=== PATIENT | female | born 1975 | race Caucasian/White ===

== ENCOUNTER 2016-05-27 06:07 | Day surgery (SDC) | payer BC ==
--- NOTE | 2016-05-26 19:41 | GHP ---
[f rep st] PREOP HISTORY AND PHYSICAL DATE OF ADMISSION: 05/27/2016 DATE OF SURGERY: 05/27/2016 SERVICE: Obstetric service. HISTORY OF PRESENT ISSUE: The patient is a 40-year-old G3, P1, A1, who is approximately 9 weeks from her last menstrual period on 03/25/2016, who has a threatened AB. The patient has had bleeding for the past 2 days with cramping. The bleeding and cramps have not been excessive, however, persistent, and the patient has had a concerning feel about the . The patient has been minimally affected with nausea. The patient had a positive test in early April. Ultrasound performed on 05/26 shows an intrauterine gestational sac with multiple cystic-looking areas. No obvious distinct yolk sac or fetus identified. Possible pole measuring 8 weeks 2 days, however , malformed if it was development. No heart rate visualized. Probable corpus luteum cyst on the right ovary noted. Left ovary appears normal. The results were reviewed with the patient, with the concern that there does not appear to be a normally developing . The patient desires to proceed with definitive management with a D and C. With this cystic component and the gestational sac, the patient was informed of potential molar change. The patient is reassured that the pathology information from the D and C will guide us as to future followup. The patient desires the procedure as soon as possible, and this has been arranged on 05/27/2016. The patient has a negative blood type of A negative and is aware she needs RhoGAM. This will be administered when she is in the hospital after the D and C. The patient will be advised as to the risks for surgery, and consent form will be signed at the time of preop at the bedside. PAST OBSTETRIC HISTORY: One elective termination in May 2011 with no complications. A term primary section for breech presentation performed on December 04, 2014, by Dr. Lew. Patient had a viable female at 8 pounds 2 ounces, and the procedure was uncomplicated. 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 Last Pap smear in December 2014. PAST MEDICAL HISTORY: History of depression. PAST SURGICAL HISTORY: Thyroglossal duct removed at age 17 and a LEEP procedure in 2012. section, November 2014. ALLERGIES: The patient has no known drug allergies. CURRENT MEDICATIONS: Only vitamins. LABS: Patient with a history of a negative blood type. PHYSICAL EXAM: GENERAL: The patient is a well-developed, well-nourished white female with depressed persona with the knowledge of the abnormal . Appropriate behavior. VITAL SIGNS: Clinically afebrile. Blood pressure 82/ 58. LUNGS: Clear to auscultation bilaterally. CARDIOVASCULAR: Regular rate and rhythm. ABDOMEN: Soft, nontender. Ultrasound as described above. Bimanual exam not performed. EXTREMITIES: Nontender and no edema. ASSESSMENT: Threatened with bleeding and cramping x2 days. Abnormal intrauterine gestational sac with cystic components. PLAN: We will proceed with a D and C on the morning of 05/27/2016. The patient will have a CBC, blood type, Rh, and antibody screen performed and then will receive RhoGAM if antibody screen is negative. HCG level also will be drawn in case this reveals molar tissue to facilitate watching hCG levels after the surgery. Patient knows to be n.p.o. after midnight. She will receive IV antibiotics and have SCDs on during the procedure. /[id number]/MODL MTDD
[2016-05-27] MEDS ORDERED: DOXYCYCLINE INJ 100 MG in NS 250 ML IV ONE (07:00)
[2016-05-27] MEDS ORDERED: LR 1,000 ML IV ONE (07:00)
[2016-05-27] MEDS ORDERED: MIDAZOLAM 2 MG/2 ML VIAL ONE (07:06)
[2016-05-27] MEDS ORDERED: AMMONIA AROMATIC 1 EACH AMP IH ONE (07:07)
[2016-05-27] MEDS ORDERED: MISOPROSTOL 200 MCG TAB ONE (07:07)
[2016-05-27] MEDS ORDERED: OXYTOCIN 10 UNIT/ML VIAL ONE (07:08)
[2016-05-27 07:24] LABS: % IMMATURE GRANULYOCYTES 0.4 % (0.0-1.1); ABSOLUTE IMMATURE GRANULOCYTES 0.02 10^3/uL (0.00-0.10); ADD DIFF? NO; ADD MORPH? NO; ADD SCAN? NO; ATYPICAL LYMPHOCYTE FLAG 0 (0-99); FRAGMENT RBC FLAG 0 (0-99); HEMATOCRIT 39.4 % (38.0-47.0); HEMOGLOBIN 13.9 g/dL (12.6-16.3); LEFT SHIFT FLG 0 (0-99); LIPEMIA HEMOLYSIS FLAG 90 (0-99); MEAN CELL HEMOGLOBIN 32.2 pg (27.9-34.1); MEAN CELL HEMOGLOBIN CONCENTR. 35.3 g/dL (32.4-36.7); MEAN CELL VOLUME 91.2 fL (81.5-99.8); MEAN PLATELET VOLUME 10.1 fL (8.7-11.7); PLATELET CLUMPS FLAG 0 (0-99); PLATELET COUNT 247 10^3/uL (150-400); RED BLOOD CELL COUNT 4.32 10^6/uL (4.18-5.33)
[2016-05-27] MEDS ORDERED: fentaNYL 100 MCG/2 ML INJ ONE (07:49)
[2016-05-27] MEDS ORDERED: LIDOCAINE 2% 100 MG/5 ML SYR IVP ONE (07:50)
[2016-05-27] MEDS ORDERED: DEXAMETHASONE 4 MG/ML VIAL ONE (07:50)
[2016-05-27] MEDS ORDERED: PROPOFOL/EMULSION 500 MG/50 ML BOTTLE IV ONE (07:50)
[2016-05-27] MEDS ORDERED: ONDANSETRON 4 MG/2 ML VIAL ONE (07:50)
[2016-05-27] MEDS ORDERED: LIDOCAINE 2% JELLY 5 ML TUBE ONE (07:51)
--- NOTE | 2016-05-27 09:38 | GOP ---
[f rep st] OPERATIVE REPORT DATE OF OPERATION: 05/27/2016 SURGEON: Gely Lew MD ANESTHESIA: General anesthesia. ANESTHESIOLOGIST: Parrish Pride MD PREOPERATIVE DIAGNOSIS: Missed at 9 weeks. POSTOPERATIVE DIAGNOSIS: Missed at 9 weeks. PROCEDURE PERFORMED: Suction dilation and curettage. FINDINGS: SPECIMENS: Products of conception. ESTIMATED BLOOD LOSS: Estimated blood loss for the procedure was less than 20 cc. INDICATIONS: The patient is a 40-year-old, 3, para 1-0-1-1, with a last menstrual period of 03/25/2016 who presented complaining of bleeding for the last couple days. Ultrasound in the office documented an abnormal gestational sac with cystic areas, no defined pole. Diagnosis of missed was made. The patient was given options of medical management versus surgical management v ersus expectant. The patient desired surgical management with suction dilation and curettage. She u nderstood the risks and benefits and was consented for the procedure, the risks including bleeding, i nfection, damage to organs including the uterus, possible risk of perforation, damage to other organs if perforation were to occur, risk of incomplete removal of all the tissue, need for additional proc edures or spontaneous expulsion at a later time, and compromise of future fertility. She understood these risks and benefits and agreed to proceed. DESCRIPTION OF PROCEDURE: Patient was taken to the operating room, where she was given general anest hesia without difficulty. She was prepped and draped in dorsal lithotomy position. After a WHO time -out was performed, an open-sided speculum was placed in the vagina, and a Jensen tenaculum was used to grasp the anterior lip of the cervix. The uterus sounded to 10 cm. The cervix was gently dilated with Mcknight dilators to a #10. A #10 suction curette was gently advanced from the cervix to the fund us, and suction was applied. Products of conception were removed from the uterus with several passes of the suction. Sharp curettage was then performed in a clockwise fashion until a gritty texture wa s palpated throughout the entire endometrial cavity. Final pass of the suction revealed no further t issue and good hemostasis. Tenaculum was removed. There was no bleeding. Speculum was removed. A bedside transvaginal ultrasound revealed normal uterine contents, no evidence of retained products of conception, and a thin endometrial stripe. Patient tolerated the procedure well. Sponge, lap, need le, and instrument counts were correct x2. Patient went to recovery room in good condition. URINE OUTPUT: Not measured. IV FLUIDS: 800 cc. /[id number]/MODL
== END 2016-05-27 10:30 | disposition home or self-care (01) ==
LOC: FOBOP 06:07
PROVIDERS: ATTEND Obstetrics & Gynecology
PROC: 10D17ZZ Extraction of Products of Conception, Retained, Via Natural or Artificial Opening (ICD-10-PCS; principal; 2016-05-27)
DX: O02.1 Missed abortion (principal); Z3A.09 9 weeks gestation of pregnancy
CPT/HCPCS: J1100; J2001; J2250; J2405; J2704; J3010

== ENCOUNTER → 2016-09-03 | Outpatient (CLI) | payer BC | LOC: FIMAGING 12:23 | DX: Z12.31 Encounter for screening mammogram for malignant neoplasm of breast (principal); Z80.3 Family history of malignant neoplasm of breast | CPT/HCPCS: G0202 ==

== ENCOUNTER 2017-06-16 16:02 | Inpatient (IN) | payer BC ==
[2017-06-16] MEDS ORDERED: ceFAZolin 2 GM/DEXTROSE 100 ML IV ONE (16:12)
[2017-06-16] MEDS ORDERED: LR 500 ML IV ONE (16:12)
--- NOTE | 2017-06-16 16:20 | PDGENHP ---
History and Physical - Chief Complaint Vaginal bleeding sent over from office - History of Present Illness Patient is a 41 year old at 38 6/7 weeks gestation who was sent over from the office for vaginal spotting. Patient states started to have cramping for the past few days. Patient states she lost her mucous plug one week ago. Has had no bleeding until today at 12 N. Patient then ate a big meal burrito at 2 pm and went to the office. In the office patient was noted to be 2/75/-2 with active bleeding Francine Christensen. Patient arrives to labor and delivery. +FM no leaking of fluid some cramping. Patient has a history of previous section and scheduled for next week. History Information - Allergies/Home Medication List Allergies/Adverse Reactions: No Known Allergies Allergy (Unverified 12/04/14 06:00) Home Medications: Cholecalciferol Vit D3 [Vitamin D3 (*)] 12/04/14 [Last Taken Unknown] Pnv Combo#47/Iron/FA #1/Dha [Virt-Pn Dha Softgel] 1 each PO DAILY 12/04/14 [ Last Taken Unknown] I have personally reviewed and updated: medical history - Social History Smoking Status: Never smoked Review of Systems Review of Systems: Physical Exam Physical Exam: Constitutional: no apparent distress Cardiovascular: regular rate and rhythym, no murmur, rub, or gallop Respiratory: no respiratory distress, no rales or rhonchi, clear to auscultation Gastrointestinal: soft, non-tender abdomen, tenderness Genitourinary: other (2/75/-2 in office FHT 135 + accels moderate variability Cat I toco contractions Q4-5) Skin: warm, normal color, mottled Musculoskeletal: full muscle strength, no muscle tenderness Neurologic: AAOx3, sensation intact bilaterally Lab Data & Imaging Review A negative Rubella Immune HBsAg negative HIV negative Assessment & Plan Assessment: IUP at 38 6/7 weeks gestation Previous section Active bleeding in office Labor vs abruption Plan: Admit to labor and Delivery for Observation IVF Labs NPO Will consider repeat section if continues bleeding or cervical change noted
[2017-06-16] MEDS ORDERED: LR 1,000 ML IV SCH (16:30)
[2017-06-16] MEDS ORDERED: ceFAZolin 2 GM/SWFI 2 GM/20 ML SYR IVP ONE (16:30)
[2017-06-16 16:56] LABS: PLATELET COUNT 218 10^3/uL (150-400)
[2017-06-16] MEDS ORDERED: CITRIC ACID/SODIUM CITRATE 30 ML UDCUP PO ONE (19:15)
[2017-06-16] MEDS ORDERED: METOCLOPRAMIDE 10 MG/2 ML VIAL IVP ONE (19:15)
--- NOTE | 2017-06-16 20:23 | PREANESOB ---
Obstetric Pre-Anesthesia Info - General Info Proposed Procedure: Repeat C Section. : 3 Para: 1 RONNIE: 06/24/17 Gestational Age: 38 week(s) and 6 day(s) - Info Status: Full Term Monitors: External FHR Baseline (bpm): 140 FHR Pattern: Reassuring - Labor Status Cervical Dilation per last OB SVE: 0 Section History: Repeat Indications for Current Section: Elective/Repeat (Repeat C Section for patient in labor.) Labor Epidural: No Anesthesia ROS: Prior spinal for C Section and general for removal of thyroglossal duct cyst. Allergies/Adverse Reactions: Allergy/AdvReac Type Severity Reaction Status Date / Time No Known Allergies Allergy Unverified 06/16/17 17:16 Home Medications: Medication Instructions Recorded Pnv Combo#47/Iron/FA #1/Dha 1 each PO DAILY 12/04/14 [Virt-Pn Dha Softgel] Visit Medications: Generic Name Dose Route Start Last Admin Trade Name Freq PRN Reason Stop Dose Admin Lactated Ringer's 1,000 mls @ 125 mls/hr 06/16/17 16:30 06/16/17 17:20 Lr IV 06/17/17 16:29 1,000 mls CONT [place] Administration Discontinued Medications Generic Name Dose Route Start Last Admin Trade Name Freq PRN Reason Stop Dose Admin Citric Acid/Sodium Citrate 30 ml 06/16/17 19:15 06/16/17 20:14 Bicitra PO 06/16/17 19:16 30 ml ONCE ONE Administration Cefazolin Sodium/Dextrose 100 mls @ 200 mls/hr 06/16/17 16:12 Ancef 2 Gm (Premix) IV 06/16/17 16:41 ONCALL ONE Protocol Lactated Ringer's 500 mls @ 0 mls/hr 06/16/17 16:12 06/16/17 19:29 Lr IV 06/16/17 16:13 500 mls ONCE ONE Administration As Directed Cefazolin Sodium 2 gm in 20 mls @ 200 mls/hr 06/16/17 16:30 Cefazolin Syringe IVP 06/16/17 16:35 ONCALL ONE Metoclopramide HCl 10 mg 06/16/17 19:15 06/16/17 19:27 Reglan Injection IVP 06/16/17 19:16 10 mg ONCE ONE Administration - Anesthesia History Response to Local Anesthetics: Normal Anesthesia & Operative History: No Prior Problems Family Anesthesia History: Negative - Social History Substance Use/Abuse: Denies - Vital Signs Latest Vital Signs (Nursing): Temp Pulse Resp BP Pulse Ox 36.9 C 83 20 123/84 H 94 06/16/17 19:44 06/16/17 19:44 06/16/17 19:44 06/16/17 19:44 06/16/17 19:44 Blood Pressure: 123/84 Heart Rate: 83 Height/Weight (Nursing): Height 177.8 cm Weight 78.471 kg - Focused Exam Neck exam: FROM Mallampati Score: Class 1 Mouth exam: normal dental/mouth exam Pulmonary: no respiratory distress Cardiovascular: regular rate and rhythym Labs: 06/16/17 16:45 Patient ABO/Rh A NEGATIVE 06/16/17 16:45 - Plan Anesthetic Plan: SAB Consent Signed and on Chart: Yes Patient/Guardian Understands and Agrees to Plan: Yes
[2017-06-16] MEDS ORDERED: morphINE PF 5 MG/10 ML INJ ONE (20:38)
[2017-06-16] MEDS ORDERED: fentaNYL 100 MCG/2 ML INJ ONE (20:39)
[2017-06-16] MEDS ORDERED: DEXAMETHASONE 4 MG/ML VIAL ONE ×2 (20:40→20:41)
[2017-06-16] MEDS ORDERED: OXYTOCIN 100 UNITS/10 ML VIAL ONE (20:41)
[2017-06-16] MEDS ORDERED: PHENYLEPHRINE HCL 100 MCG/ML SYR ONE ×2 (20:41→21:30)
[2017-06-16] MEDS ORDERED: ONDANSETRON 4 MG/2 ML VIAL ONE ×2 (20:41)
[2017-06-16] MEDS ORDERED: DOCUSATE SODIUM 100 MG CAP PO PRN (22:34)
[2017-06-16] MEDS ORDERED: ACETAMINOPHEN 325 MG TAB PO PRN (22:34)
[2017-06-16] MEDS ORDERED: SIMETHICONE 80 MG TAB CHEW PO PRN (22:34)
[2017-06-16] MEDS ORDERED: PROMETHAZINE HCL 25 MG/ML INJ IVP PRN (22:34)
[2017-06-16] MEDS ORDERED: LACTULOSE 20 GM/30 ML UDCUP PO PRN (22:35)
[2017-06-16] MEDS ORDERED: POLYETHYLENE GLYCOL 3350 17 GM PKT PO PRN (22:35)
[2017-06-16] MEDS ORDERED: NALOXONE HCL 0.4 MG/ML INJ IVP PRN (22:35)
[2017-06-16] MEDS ORDERED: HYDROmorphONE/DILAUDID 6 MG/30 ML PCA IV PRN (22:35)
[2017-06-16] MEDS ORDERED: MAGNESIUM HYDROXIDE 30 ML UDCUP PO PRN (22:35)
[2017-06-16] MEDS ORDERED: BISACODYL 10 MG SUPP PR PRN (22:35)
--- NOTE | 2017-06-16 22:40 | OBDEL ---
Info Type: Repeat Presentation at Delivery: Vertex L&D Analgesia/Anesthesia Type: Spinal GBS+: Yes (intact) Intrapartum Medications: Generic Name Dose Route Start Last Admin Trade Name [place] PRN Reason Stop Dose Admin Lactated Ringer's 1,000 mls @ 125 mls/hr 06/16/17 16:30 06/16/17 17:20 Lr IV 06/17/17 16:29 1,000 mls CONT [place] Administration Discontinued Medications Generic Name Dose Route Start Last Admin Trade Name Freq PRN Reason Stop Dose Admin Citric Acid/Sodium Citrate 30 ml 06/16/17 19:15 06/16/17 20:14 Bicitra PO 06/16/17 19:16 30 ml ONCE ONE Administration Lactated Ringer's 500 mls @ 0 mls/hr 06/16/17 16:12 06/16/17 19:29 Lr IV 06/16/17 16:13 500 mls ONCE ONE Administration As Directed Cefazolin Sodium 2 gm in 20 mls @ 200 mls/hr 06/16/17 16:30 06/16/17 20:45 Cefazolin Syringe IVP 06/16/17 16:35 20 mls ONCALL ONE Administration Metoclopramide HCl 10 mg 06/16/17 19:15 06/16/17 19:27 Reglan Injection IVP 06/16/17 19:16 10 mg ONCE ONE Administration - Care Provider Hand Reamer/DUSTING AND BRUSHING MACHINE OPERATOR: Niecy Golden - Hospital Course Intrapartum: 06/16/17 22:38 Pt had 2 episodes of bright red active bleeding today with regular contractions. She was 38 6/7 weeks and scheduled for repeat c section, declined TOLAC. We decided to proceed with c section tonight. Indications for Delivery: Spontaneous Labor, Elective Operative Report - Delivery Pre-op Diagnoses: IUP @ 38 6/7 weeks in labor with h/o c section desires repeat History of Prior Section: Yes Number of Prior Sections: 1 Nulliparous Prior to Delivery: No Indications for Prior Section: Breech Indications for Current Section: Elective/Repeat (Repeat C Section for patient in labor.) Procedure: Unscheduled Surgeon: Gely Lew Superintendent Custodian Janitor: Adrienne Childs Anesthesiologist: Joselo Langley Complications: None Findings: normal uterus, tubes and ovaries IV Fluid (ml): 3,300 EBL: 1100 [place] Data RONNIE: 06/24/17 Gestational Age: 38 week(s) and 6 day(s) Abdi Delivery Date: 06/16/17 Delivery Time: 21:41 Sex of : Female Score (1 Min): 8 Score (5 Min): 9 ICD10 Worksheet Patient Problems: Problems Problem Status Onset S/P repeat low transverse Acute Breech presentation Acute delivery delivered Acute - ICD10 Problem Qualifiers (1) S/P repeat low transverse
--- NOTE | 2017-06-16 22:50 | POSTANESTH ---
Post Anesthetic Evaluation Cardiovascular Status: Normal, Stable, Similar to Pre-Op Cond Respiratory Status: Normal, Stable, Similar to Pre-op Cond. Level of Consciousness/Mental Status: Can Participate in Eval, Alert and Oriented Pain Control: Adequate, Prn Tx Ordered Nausea/Vomiting Control: Adequate, Prn Tx Ordered Complications Possibly Related to Anesthesia: None Noted
[2017-06-16] MEDS ORDERED: ONDANSETRON 4 MG/2 ML VIAL IVP PRN (23:02)
[2017-06-16] MEDS ORDERED: SCOPOLAMINE HYDROBROMIDE 1 MG/3 DAYS PATCH TD PRN (23:05)
--- NOTE | 2017-06-16 23:22 | GOP ---
[f rep st] OPERATIVE REPORT DATE OF OPERATION: 06/16/2017 SURGEON: Gely Lew MD SPLITTING MACHINE OPERATOR: Adrienne Childs, certified nurse first calender worker. ANESTHESIA: Dr. Sai Langley, spinal anesthesia. PREOPERATIVE DIAGNOSIS: Intrauterine at 38 and 6/7th weeks' gestation in active labor with a history of lower transverse section; desires repeat. POSTOPERATIVE DIAGNOSIS: Intrauterine at 38 and 6/7th weeks' gestation in active labor wit h a history of lower transverse section; desires repeat. PROCEDURE PERFORMED: FINDINGS: DESCRIPTION OF PROCEDURE: Patient was taken to the operating room, where she was given spinal anesth esia without difficulty. She was prepped and draped in the dorsal supine position with a leftward ti lt, and a Arnett catheter was placed in her bladder. After adequate anesthesia was assured and a WHO time-out was performed, a transverse skin incision was made in the prior scar, and the inci issac was carried down to the underlying layer of fascia with the Bovie. Fascia was incised in the mi dline. Fascial incision was extended laterally with [place] scissors. Superior aspect of the fascial i ncision was grasped with the Power clamps, elevated, and the rectus muscles were dissected off sharp ly. Inferior aspect of the fascial incision was grasped with the Power clamps, elevated, and the re ctus muscles were dissected off sharply. Rectus muscles were in the midline. Peritoneum w as entered sharply. Peritoneal incision was extended superiorly and inferiorly, with good visualizat ion of the bladder. Bladder blade was inserted. The vesicouterine peritoneum was grasped with the p ickups, entered sharply with Metzenbaum scissors. The incision was extended laterally, and bladder f lap was created digitally. Bladder blade was reinserted. The uterus was incised with a knife. The incision was extended laterally with bandage scissors. There was clear amniotic fluid upon entry the uterine cavity. The infant was delivered atraumatically. We waited 1 minute to delay cord clamping . The cord was clamped and cut. The was handed off to the waiting nurse juan diegoe nicolasa. Cord bloods were sent. The placenta was removed manually. The uterus was exteriorized, cleared of all clots and debris. The uterine incision was repaired with 0 Vicryl in a running locked fashion . Second imbricating layer of suture was performed with 0 Vicryl. There were small areas of bleedin g along the lower segment that were closed also with [id number] sutures of 0 Vicryl, and hemosta sis was obtained. The uterus was returned to the abdomen. Gutters were cleared of all clots and sandy ris. Reinspection of the uterine incision revealed small areas that were oozing, which were cauteriz ed with Bovie cautery, and Narcisa powder was inserted on the hysterotomy to ensure hemostasis. The r ectus muscles were approximated with 2-0 Vicryl in an inverted mattress fashion. The fascia was clos ed with #1 Vicryl in a running fashion. The subcutaneous layer was closed with 2-0 Vicryl in a runni ng fashion, and the skin was closed with 4-0 Vicryl. Patient tolerated the procedure well. Sponge, lap, needle, and instrument counts were correct x3. Patient went to the recovery room in good condit ion. Estimated blood loss for the procedure was 1100 cc. Fluid replacement was 3300 cc. Urine outp ut was 300 cc. PROCEDURE PERFORMED: Repeat lower transverse section. INDICATIONS FOR PROCEDURE: This patient is a 41-year-old 4, para 1-0-2-1 at 38 and 10/27 wee ' gestation, set by a first trimester ultrasound. She has an EDC of 06/24/2017. She has a history of lower transverse section with G1 secondary to breech, and desires a repeat sect ion, and she is scheduled for Tuesday the . Patient presented today complaining of an episode of active vaginal bleeding, bright red, that persisted, a couple incidents over the day. She had incre ased contractions over the day. Cervix was checked, found to be 250%, -2, which was not a dramatic c hange from a prior exam; however, she had consistent contractions and persistent spotting, and so the decision was made to proceed with section today secondary to signs of labor, and desires re peat section. Patient was consented for the procedure. She understood the risks and benefi ts, the risks including bleeding, infection, damage to organs, uterus, tubes, ovaries, bowel, bladder , nerves, blood vessels, ureters, risk of injury, risk of hemorrhage requiring blood transfusio n, hysterectomy, or . She understood these risks and benefits, agreed to proceed. FINDINGS FOR PROCEDURE: Viable female. Apgars of 8 and 9, and weight of 8 pounds 2 ounces. She was born at 2141. /[id number]/MODL
[2017-06-16] MEDS ORDERED: KETOROLAC 30 MG/1 ML SDV ONE (23:25)
[2017-06-16] MEDS: KETOROLAC 30 MG/1 ML SDV IVP PRN (23:26)
[2017-06-17] MEDS: KETOROLAC 30 MG/1 ML SDV IVP PRN ×3 (06:41→18:40)
--- NOTE | 2017-06-17 09:09 | OBPP ---
Progress Note Assessment/Plan: Assessment: Post op day 1 s/p low transverse section Stable afebrile Plan: continue / Post op care 06/17/17 09:08 Subjective/ Course: 06/17/17 09:14 Doing well no complaints. Arnett in place, min pain min lochia Objective: 06/17/17 05:17 Patient ABO/Rh A NEGATIVE 06/17/17 01:20 Temp Pulse Resp BP Pulse Ox 36.2 C 71 16 96/54 L 95 06/17/17 04:00 06/17/17 04:00 06/17/17 04:00 06/17/17 04:00 06/17/17 04:00 Uterine Position/Fundal Height: Umbilicus -1 Uterine Tone: Firm Physical Exam - Physical Exam Neck: non-tender, full range of motion Respiratory: chest non-tender, lungs clear, normal breath sounds Cardiac/Chest: normal peripheral pulses, regular rate, rhythm Abdomen: normal bowel sounds, non-tender, soft, dressing (Dressing clean and dry ), other Extremities: normal range of motion, non-tender Skin: normal color, warm/dry Neuro/Psych: no motor/sensory deficits, alert, normal mood/affect, oriented x 3
[2017-06-17] MEDS: SENNOSIDES/DOCUSATE SODIUM TAB PO SCH ×2 (16:19→20:37)
[2017-06-17] MEDS: HYDROCODONE/APAP 5/325 TAB PO PRN ×2 (16:39→20:37)
[2017-06-18] MEDS: IBUPROFEN 600 MG TAB PO PRN ×4 (00:40→18:30)
[2017-06-18] MEDS: HYDROCODONE/APAP 5/325 TAB PO PRN ×5 (00:40→17:34)
[2017-06-18 06:36] VITALS: RESP 16
--- NOTE | 2017-06-18 08:38 | OBPP ---
Progress Note Assessment/Plan: Assessment: Post op day 2 s/p low transverse section Stable afebrile Plan: continue / Post op care 06/17/17 09:08 06/18/17 08:37 Discharge home tomorrow Subjective/ Course: 06/17/17 09:14 Doing well no complaints. Arnett in place, min pain min lochia Objective: 06/17/17 05:17 Patient ABO/Rh A NEGATIVE 06/17/17 01:20 Temp Pulse Resp BP Pulse Ox 36.1 C 54 L 16 88/49 L 93 06/18/17 05:00 06/18/17 05:00 06/18/17 05:00 06/18/17 05:00 06/18/17 05:00 Uterine Position/Fundal Height: Umbilicus -2 (incision clean dry and intact) Uterine Tone: Firm Physical Exam - Physical Exam Neck: non-tender, full range of motion Respiratory: chest non-tender, lungs clear, normal breath sounds, respiratory distress Cardiac/Chest: normal peripheral pulses, regular rate, rhythm Abdomen: normal bowel sounds, hypoactive bowel sounds Skin: normal color, warm/dry, cyanosis Neuro/Psych: no motor/sensory deficits, alert, normal mood/affect, oriented x 3
[2017-06-18] MEDS: SENNOSIDES/DOCUSATE SODIUM TAB PO SCH ×2 (09:19→22:35)
[2017-06-18 16:43] VITALS: O2SAT 96
[2017-06-18] MEDS: oxyCODONE IR 5 MG TAB PO PRN (22:36)
[2017-06-19] MEDS: IBUPROFEN 600 MG TAB PO PRN ×2 (00:43→09:19)
[2017-06-19] MEDS: oxyCODONE IR 5 MG TAB PO PRN (03:40)
--- NOTE | 2017-06-19 07:10 | OBPP ---
Progress Note Assessment/Plan: Assessment: Post op day 3 s/p low transverse section Stable afebrile Ready for discharge Plan: continue / Post op care 06/17/17 09:08 06/18/17 08:37 Discharge home tomorrow 06/19/17 07:06 Discharge home follow up at 2, 4 and 6 weeks Return precautions given Subjective/ Course: 06/17/17 09:14 Doing well no complaints. Arnett in place, min pain min lochia Objective: 06/17/17 05:17 Patient ABO/Rh A NEGATIVE 06/17/17 01:20 Temp Pulse Resp BP Pulse Ox 36.5 C 68 16 100/58 L 96 06/18/17 20:00 06/18/17 20:00 06/18/17 20:00 06/18/17 20:00 06/18/17 20:00 Uterine Position/Fundal Height: Umbilicus -2 (Incision clean/dry/intact) Uterine Tone: Firm Physical Exam - Physical Exam Neck: non-tender, full range of motion Respiratory: chest non-tender, lungs clear, normal breath sounds Cardiac/Chest: normal peripheral pulses, regular rate, rhythm Abdomen: normal bowel sounds, non-tender Extremities: normal range of motion, non-tender Skin: normal color, warm/dry Neuro/Psych: no motor/sensory deficits, alert, normal mood/affect, oriented x 3
--- NOTE | 2017-06-19 07:15 | OBGCSDC ---
General Delivery Information - General Info : 3 Para: 2 Abortions: 1 Type: Repeat L&D Analgesia/Anesthesia Type: Spinal Admission Date: 06/16/17 Labs: Patient ABO/Rh A NEGATIVE 06/17/17 01:20 Hct 33.7 % (38.0-47.0) L 06/17/17 05:17 - Hospital Course Intrapartum: 06/16/17 22:38 Pt had 2 episodes of bright red active bleeding today with regular contractions. She was 38 6/7 weeks and scheduled for repeat c section, declined TOLAC. We decided to proceed with c section tonight. : 06/17/17 09:14 Doing well no complaints. Arnett in place, min pain min lochia - Delivery Providers Surgeon: Gely Lew Licensed Loan Officer: Adrienne Childs Anesthesiologist: Joselo Langley - Delivery Number of Prior Sections: 1 Indications for Current Section: Elective/Repeat (Repeat C Section for patient in labor.) Surgical Procedures: Unscheduled Intra-op Complications: None EBL: 1100 [place] Data RONNIE: 06/24/17 Gestational Age: 39 week(s) and 2 day(s) Abdi Delivery Date: 06/17/17 Delivery Time: 21:41 Sex of : Female Score (1 Min): 8 Score (5 Min): 9 Discharge Information - Discharge Information Prescriptions: Ibuprofen [Motrin (*)] 600 mg PO Q6HRS PRN #30 tab PRN Reason: Inflammation Docusate Sodium [Colace 100 MG (*)] 100 mg PO BID PRN #30 cap PRN Reason: Constipation Hydrocodone/APAP 5/325 [[place] 5/325 (*)] 1 - 2 tab PO Q6H PRN #30 tab PRN Reason: Pain, Breakthrough Condition: Good Instruction/Follow Up: Two Weeks (2 weeks incision check, 4 weeks wellness check and 6 weeks post check)
[2017-06-19] MEDS: SENNOSIDES/DOCUSATE SODIUM TAB PO SCH (09:19)
[2017-06-19 09:50] VITALS: BP 99/60; PULSE 76; TEMP 98.6
== END 2017-06-19 15:00 | disposition home or self-care (01) | DRG 766 ==
LOC: FLD 16:02 → OBSVTOIN 16:02 → FOB 06-17 01:00
PROVIDERS: ADMIT Obstetrics & Gynecology; ATTEND Obstetrics & Gynecology
PROC: 10D00Z1 Extraction of Products of Conception, Low, Open Approach (ICD-10-PCS; principal; 2017-06-16)
DX: O26.853 Spotting complicating pregnancy, third trimester (principal); O26.893 Other specified pregnancy related conditions, third trimester; O34.211 Maternal care for low transverse scar from previous cesarean delivery; Z3A.39 39 weeks gestation of pregnancy; Z37.0 Single live birth
CPT/HCPCS: J0690; J1100; J1885; J2274; J2370; J2405; J2590; J2765; J3010